=== PATIENT | male | born 1955 ===

== ENCOUNTER 2022-01-16 09:00 | Outpatient (RCR) | payer MEDICARE, SELFPAY ==
[2022-01-02 13:20] VITALS: BMI 22.1
--- NOTE | 2022-01-02 13:49 | PC.ADMIT ---
Patient is a 66 year old male who holds a dx of bipolar disorder who was referred to [facility] by [facility] where patient attended for 2 weeks d/t SI with plan. Patient denied SI at present. Patient struggling with an increase in anxiety and stress d/t conflict with [facility]. Patient believes he is going to be evicted and they want him out of the complex. Talked about multiple verbal altercations with others in the complex. Stated he needs to control his anger. Believes he is being harassed. He stated it seems as though people do not like him. Patient reports sleeping 4 hours a night then wakes up for a few hours then sleeps for an additional hour. Patient also reports weight loss of 7 lbs with in the past month. Patient reports struggling with changes with new providers as he stated he lost his psychiatrist 4 months ago. Patient also struggling with the loss of his brother whom was murdered last year. Patient reports smoking 1-2 marijuana joints nightly d/t neuropathy pain. Stated he has his medical marijuana card. Patient has Type II diabetes, insulin dependent. Uses an insulin pump that monitors his blood sugars and manages this independently. Reports blood sugars are typically around 145. Patient reports taking his medications as prescribed. Patient is alert and oriented x4. Calm and cooperative. Presents with depressed mood and anxious affect. Some irritability noted. Medications reconciled with patient and patient's pharmacy. Patient reports he is taking medications as prescribed.
[2022-01-02 15:44] LABS: Amphetamine Screen Urine Not Detected (Not Detect); Barbiturates, Urine Not Detected (Not Detect); Benzodiazepines Screen Urine Not Detected (Not Detect); Cannabinoid Screen Urine POSITIVE (Not Detect); Cocaine Screen Urine Not Detected (Not Detect); Fentanyl, urine Not Detected (Not Detect); Opiate Screen Urine Not Detected (Not Detect); Phencyclidine Screen Urine Not Detected (Not Detect)
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
--- NOTE | 2022-01-06 08:14 | HO.PHPIOP ---
Case opened in treatment team
--- NOTE | 2022-01-16 16:36 | P.PNPSP_ITS ---
Subjective Subjective Date of Service: 01/16/22 Reason For Visit: bipolar Medical Problems Affecting Mental Status: No Interim History: Describes mood as ?great?. States he feels ?happy, content ?. No SI, no safety concerns. States he feels ready for discharge from [facility] today. Medication Compliance: Yes Side effects from medications: No Attending Groups: Yes Review of Systems Acute medical concerns: No Medical Review of Systems: unchanged Review of Systems Review of Systems Yes all other systems are reviewed and are negative Constitutional: Reports no additional constitutional complaints Mental Status Exam Mental Status Exam Narrative: NAD Patient Appearance: Appropriate Patient Orientation: Person, Place, Time and Situation Level of Consciousness: Appropriate Patient Behavior: Appropriate, Talkative, Cooperative and Good Eye Contact Mood Description: Happy Affect Description: Appropriate Patient Cognition Impaired: No Ability to Follow Directions: Good Speech Pattern: Clear and Excessive Memory Description: Intact Hallucinations: None Delusions: Not Present Thought Process: Intact Thought Content: positive for Intact Judgement: Good Diagnostics Vital Signs (24Hr): BMI result Body Mass Index 22.1 Assessment & Plan Assessment & Plan (1) Bipolar disorder, current episode depressed, moderate: Status: Acute Code(s): F31.32 - Bipolar disorder, current episode depressed, moderate Assessment and Plan: Patient denies any symptoms of depression, states that he feels ?great?. No mood lability noted, no symptoms of hypomania/luann present. No paranoia. Patient feels stable for discharge from [facility] at this time. Has found program helpful. No SI/HI, no safety concerns. (2) Alcohol use disorder, severe, in sustained remission: Status: Acute Code(s): F10.21 - Alcohol dependence, in remission Assessment and Plan: Patient continues to abstain from alcohol. Plan 1. Patient appears stable for discharge from [facility] at this time. 2. Patient to follow-up with outpatient providers going forward. Patient educated on: diagnosis, medication risk/benefits and therapeutic strategies Informed Consent: understands Reason for contiued partial hosp. stay Substantial Risk for: stable for discharge Certification I certify that partial hospital treatment is medically necessary due to the symptoms and problems resulting from the patient's mental illness and the failure to treat the patient at the partial hospital level of care would likely result in the patient requiring inpatient psychiatric care which could not be prevented at a less intensive level of care. I spent minutes with the patient and/or on the patient floor today, greater than?50% of which was spent counseling/coordinating care. Discharge Plan Discharge Attending provider: Javy Serrano Medications: No Action trazodone 50 mg Tablet 50 - 100 mg PO BEDTIME ropinirole 0.5 mg Tablet 0.5 mg PO BEDTIME Rx Instructions: administer 1-3 hours before bedtime aripiprazole 5 mg Tablet 5 mg PO DAILY lisinopril 10 mg Tablet 10 mg PO DAILY bupropion HCl 200 mg Tablet Sustained-Release 12 Hr 200 mg PO DAILY duloxetine 20 mg Capsule,Delayed Release(Dr/Ec) 20 mg PO DAILY aspirin 81 mg Capsule 81 mg PO DAILY hydralazine 10 mg Tablet 10 mg PO TID mycophenolate mofetil 500 mg Tablet 500 mg PO BID ursodiol 300 mg Capsule 300 mg PO BID lorazepam 1 mg Tablet 1 mg PO DAILY PRN (Reason: Anxiety) insulin lispro [Humalog U-100 Insulin] 100 unit/mL Solution 1 sliding scale dose SUBCUT USEASDIRECTD Label Comments: Patient on an insulin pump. Rx Instructions: up to 40 units maximum daily. tacrolimus 1 mg Capsule 2 mg PO Q12H zolpidem [Ambien] 10 mg Tablet 10 mg PO BEDTIME PRN (Reason: Insomnia) Label Comments: Patient stated he uses prn. Stand Alone Forms: Patient Portal Discharge page Patient Education: Bipolar Disorder (DC)
== END 2022-01-16 23:59 | disposition home or self-care (01) ==
LOC: HO.PHPA 09:00
PROVIDERS: Nurse Practitioner Psychiatric/Mental Health; Visit Provider Psychiatry & Neurology Psychiatry
DX: F31.32 Bipolar disorder, current episode depressed, moderate (principal); F12.20 Cannabis dependence, uncomplicated; F10.21 Alcohol dependence, in remission
CPT/HCPCS: 80307; 90792; 90853